=== PATIENT | female | born 1980 | race Caucasian/White ===

== ENCOUNTER → 2017-06-03 | Day surgery (SDC) | payer BC ==
[~2017-06-03] MED LIST: IV RINGERS,LACTATED 1000ML 1,000 ML IV; ONDANSETRON PF 4 MG/2 ML VIAL.; PROPOFOL 60 ML IV
[2017-06-03 10:58] LABS: NEG OBC UR NEG; POS OBC UR POS; U PREG PATIENT NEGATIVE (NEG)
== END ==
LOC: SURG 09:03
DX: K22.10 Ulcer of esophagus without bleeding (principal); K62.5 Hemorrhage of anus and rectum; F41.9 Anxiety disorder, unspecified; Z83.71 Family history of colonic polyps; Z91.040 Latex allergy status; Z91.048 Other nonmedicinal substance allergy status; Z90.49 Acquired absence of other specified parts of digestive tract; K59.00 Constipation, unspecified; Z98.51 Tubal ligation status; Z87.891 Personal history of nicotine dependence; K63.5 Polyp of colon; K64.4 Residual hemorrhoidal skin tags
CPT/HCPCS: 43239; 81025; 88305; 88342; J2405; J2704

== ENCOUNTER 2019-06-12 04:48 | Emergency (ER) | payer BC ==
[~2019-06-12] VITALS: Ht 149.9 cm; Wt 57.3 kg
[~2019-06-12 04:48] MED LIST changes: +BUPR150T11 PO; -IV RINGERS,LACTATED 1000ML 1,000 ML IV; -ONDANSETRON PF 4 MG/2 ML VIAL.; -PROPOFOL 60 ML IV; +VIT1TABL2 PO
[2019-06-12 04:55] VITALS: BP 135/92
[2019-06-12] MEDS ORDERED: fentaNYL PF VIAL 100 MCG/2 ML VIAL IM ONE (05:15)
[2019-06-12] MEDS ORDERED: HYDR-3164 PO (05:31)
[2019-06-12] MEDS ORDERED: CYCL10TA2 PO (05:31)
--- NOTE | 2019-06-12 05:31 | PHYS DOC ---
Adult General Chief Complaint Chief Complaint: Neck Pain HPI HPI Patient is a 39 year old female with history of chronic neck pain who presents with pain. Patient states she had surgical intervention for nerve block at outpatient clinic of by anesthesiologist 3 days ago that became complicated feet injecting the blood was started and she was transferred by ambulance flu shot inpatient hospital with unremarkable CT of neck and was discharged home with meloxicam. Patient states she felt okay today after surgery but since yesterday has bilateral neck pain that is more in the left site in her pain getting force with movement of her head. Patient denies fever and chills, new focal neuro deficit, nausea and vomiting. Review of Systems Review of Systems Constitutional: Denies fever or chills [] Eyes: Denies change in visual acuity, redness, or eye pain [] HENT: Denies nasal congestion or sore throat [] Respiratory: Denies cough or shortness of breath [] Cardiovascular: No additional information not addressed in HPI [] GI: Denies abdominal pain, nausea, vomiting, bloody stools or diarrhea [] : Denies dysuria or hematuria [] Musculoskeletal: Denies back pain or joint pain reports neck pain[] Integument: Denies rash or skin lesions [] Neurologic: Denies headache, focal weakness or sensory changes [] Endocrine: Denies polyuria or polydipsia [] All other systems were reviewed and found to be within normal limits, except as documented in this note. Current Medications Current Medications Current Medications Medications (Trade) Dose Ordered Sig/Nessa Start Time Stop Time Status Last Admin Dose Admin Fentanyl Citrate (Fentanyl 2ml Vial) 50 mcg 1X ONCE 06/12/19 05:15 06/12/19 05:16 DC 06/12/19 05:35 50 MCG Allergies Allergies Allergies Coded Allergies Type Severity Reaction Last Updated Verified adhesive tape Allergy Unknown 06/03/17 Yes latex Allergy Unknown 06/03/17 Yes Physical Exam Physical Exam Constitutional: Well developed, well nourished, mild distress, non-toxic appearance. [] HENT: Normocephalic, atraumatic. Eyes: PERRLA, EOMI, conjunctiva normal, no discharge. [] Neck: Atraumatic, left paracervical muscular spasm, no meningeal sign, no midline tenderness, supple, no stridor. [] Cardiovascular:Heart rate regular rhythm, no murmur [] Lungs & Thorax: Bilateral breath sounds clear to auscultation [] Extremities: No tenderness, no cyanosis, no clubbing, ROM intact, no edema. [] Neurologic: Alert and oriented X 3, no focal deficits noted. [] Psychologic: Affect anxious, judgement normal, mood normal. [] Current Patient Data Vital Signs Vital Signs Date Time Temp Pulse Resp B/P (MAP) Pulse Ox O2 Delivery O2 Flow Rate FiO2 06/12/19 05:35 97 EKG EKG [] Radiology/Procedures Radiology/Procedures [] Course & Med Decision Making Course & Med Decision Making Evaluation of patient in ER showed 39-year-old female patient with history of complicated cervical injection by anesthesiologist at [facility] days ago and had evaluation at the emergency room at [facility]. Patient complaining of bilateral neck pain that is worse in left side, patient had a cervical muscle spasm and left site without acute neurovascular deficit or meningeal sign. Patient treated with fentanyl injection affect better and was advised to follow-up with her anesthesiologist today. I've spoken with the patient and/or caregivers. I've explained the patient's c ondition, diagnosis and treatment plan based on information available to me at this time. I've answered the patient's and/or caregivers questions and addressed any concerns. The patient and/or caregivers have a good understanding the patient's diagnosis, condition and treatment plan as can be expected at this point. Vital signs have been stabilized. The patient's condition is stable for discharge from the emergency department. The patient will pursue further outpatient evaluation with her primary care prov ider or other designated consulting physician as outlined in the discharge instructions. Patient and/or caregivers are agreeable to this plan of care and follow-up instructions have been explained in detail. The patient and/or caregivers have received these instructions in written format and expressed understanding of these discharge instructions. The patient and her caregivers are aware that if any significant change in condition or worsening of symptoms should prompt him to immediately return to this of the closest emergency department. If an emergent department is not readily available I would encourage him to call 911. Jacobo Disclaimer Dragon Disclaimer This electronic medical record was generated, in whole or in part, using a voice recognition dictation system. Departure Departure Impression: Primary Impression: Acute cervical myofascial strain Disposition: HOME, SELF-CARE (0550) Condition: IMPROVED Referrals: PER FERRARI MD (PCP) Patient Instructions: Cervical Sprain Additional Instructions: Drink plenty of liquids Follow-up with your primary care physician in 3-5 days Return to ER if not getting better Follow-up with [facility] physician today Thank you for visiting [facility]. We appreciate you trusting us with your care. If any additional problems come up don't hesitate to return to visit us. Please follow up with your primary care provider so they can plan additional care if needed and know about the problem that you had. If symptoms worsen come back to the Emergency Department. Any concerning symptoms that start such as chest pain, shortness of air, weakness or numbness on one side of the body, running high fevers or any other concerning symptoms return to the ER. Scripts Hydrocodone/Apap 5-325 (NORCO 5-325 TABLET) 1 Each Tablet 1 TAB PO PRN Q6HRS PRN for PAIN, #10 TAB 0 Refills Prov: GILDARDO FAUST MD 06/12/19 Cyclobenzaprine Hcl (CYCLOBENZAPRINE HCL) 10 Mg Tablet 1 TAB PO TID, #21 TAB Prov: GILDARDO FAUST MD 06/12/19 Problem Qualifiers Primary Impression: Acute cervical myofascial strain Encounter type: initial encounter Qualified Codes: S16.1XXA - Strain of muscle, fascia and tendon at neck level, initial encounter GILDARDO FAUST MD Jun 12, 2019 05:31
== END 2019-06-12 05:50 | disposition home or self-care (01) ==
LOC: ER 04:48
DX: S16.1XXA Strain of muscle, fascia and tendon at neck level, initial encounter (principal); Z91.048 Other nonmedicinal substance allergy status; Z91.040 Latex allergy status; X58.XXXA Exposure to other specified factors, initial encounter; Y93.89 Activity, other specified; Y92.89 Other specified places as the place of occurrence of the external cause; Y99.8 Other external cause status
CPT/HCPCS: 96372; 99283; J3010